=== PATIENT | male | born 1965 | race Caucasian/White ===

== ENCOUNTER 2016-08-13 11:34 | Emergency (ER) | payer OTHER ==
[2016-08-13 11:58] VITALS: TEMP 98.2
--- NOTE | 2016-08-13 12:20 | ED ---
General Adult HPI - General Chief complaint: Wound/Laceration Stated complaint: Hand laceration Time Seen by Provider: 08/13/16 12:00 Source: patient, RN notes reviewed Mode of arrival: ambulatory Limitations: no limitations - History of Present Illness Initial comments: This is a 50-year-old male who presents emergency Department complaining of a laceration on his left hand on the base of the third digit on the medial aspect. Patient states he went to mushroom picker a roof rebel out of the truck and it cut him. Patient states she has not had a tetanus recently. Patient has full range of motion of the finger and normal sensation. Patient has no other injury at this time. - Related Data Home Medications Medication Instructions Recorded Confirmed Atorvastatin [Lipitor] 40 mg PO HS 11/27/15 08/13/16 Cyclobenzaprine [Flexeril] 10 mg PO TID 11/27/15 08/13/16 Ergocalciferol [Vitamin D2 50,000 unit PO QMONTH 11/27/15 08/13/16 (DRISDOL)] HYDROcodone/APAP 10-325MG [[place] 1 tab PO QID PRN 11/27/15 08/13/16 10-325] Ibuprofen [Motrin] 800 mg PO TID PRN 11/27/15 08/13/16 Lisinopril [Zestril] 20 mg PO QAM 11/27/15 08/13/16 Previous Rx's Medication Instructions Recorded Cephalexin [Keflex] 500 mg PO Q6HR #28 cap 08/13/16 Allergies Allergy/AdvReac Type Severity Reaction Status Date / Time No Known Allergies Allergy Verified 08/13/16 12:05 Review of Systems ROS Statement: Those systems with pertinent positive or pertinent negative responses have been documented in the HPI. ROS Other: All systems not noted in ROS Statement are negative. Past Medical History Past Medical History: Hyperlipidemia, Hypertension, Osteoarthritis (OA), Pneumonia Additional Past Medical History / Comment(s): PSORIASES,SEASONAL SINUS PROBLEMS, HEMORRHOIDS, AGE 8 HAD SX" FOR HOLE IN HIS HEART" History of Any Multi-Drug Resistant Organisms: MRSA Date of last positivie culture/infection: 11/27/15 MDRO Source:: ELBOW RIGHT Additional Past Surgical History / Comment(s): HEART SX AGE 8 TO REPAIR A "HPLE IN HIS HEART", TEETH EXTRACTED, LT HAND RING FINGER NAIL REMOVED AND PINNING DONE-PIN SINCE REMOVED. Past Anesthesia/Blood Transfusion Reactions: No Reported Reaction Additional Past Anesthesia/Blood Transfusion Reaction / Comment(s): CLAUSTERPHOBIA Past Psychological History: No Psychological Hx Reported Additional Psychological History / Comment(s): PT STATED NO PREVIOUS HX OF DEPRESSION BUT [facility] STATED OCC MILD DREPRESSION D/T SOME "ISSUES". DENIES ANY SUICIDAL THOUGHTS OR WANTING TO HARM HIMSELF OR ANYONE ELSE.PT LIVES AT HOME WITH HIS , IS INDEPENDANT AND WORKS IN THE HOME [employer]. Smoking Status: Current every day smoker Past Alcohol Use History: None Reported Additional Past Alcohol Use History / Comment(s): STATED STARTED SMOKIN G AT AGE 25 SMOKES LESS THAN 1 PPD. SMOKNG CESSTION BOOKLET GIVEN TO PT. Past Drug Use History: Marijuana - Past Family History Father Family Medical History: Myocardial Infarction (HI) Mother Family Medical History: Diabetes Mellitus Additional Family Medical History / Comment(s): OBESITY, COLOSTOMY BUT NOT SURE WHY General Exam - General Exam Comments Initial Comments: GENERAL Patient is well-developed and well-nourished. Patient is in mild distress. EYES Patient's pupils are equal and round. Extraocular motion is intact SKIN Unremarkable NEURO The patient is alert and oriented 3 PYSCH Patient has normal interpersonal interactions. MUSCULOSKELETAL Patient has a 2 cm laceration on the medial aspect of his left third finger adjacent to the proximal phalanx Limitations: no limitations Course Vital Signs 08/13/16 11:54 Temperature 98.2 F Pulse Rate 104 H Respiratory 16 Rate Blood Pressure 146/74 O2 Sat by Pulse 95 Oximetry Procedures - Laceration Laceration #1 Consent Obtained: verbal consent Time Out Performed: Yes Indication: laceration Site: hand Description: linear Depth: simple, single layer Anesthetic Used: lidocaine 1% Anesthesia Technique: local infiltration Pre-repair: wound explored Type of Sutures: nylon Size of Sutures: 4-0 Number of Sutures: 4 Complications: pain Patient Tolerated Procedure: well Disposition Clinical Impression: Laceration Disposition: HOME SELF-CARE Condition: Good Instructions: Laceration (ED) Additional Instructions: Patient should have the sutures removed in 10 days. Prescriptions: Cephalexin [Keflex] 500 mg PO Q6HR #28 cap Referrals: Manish Smith MD [Primary Care Provider] - 1-2 days Time of Disposition: 12:40
[2016-08-13] MEDS ORDERED: DIPH,PERTUS(ACELL)TETVAC-LF 0.5 ML VIAL IM ONE (12:21)
[2016-08-13 13:18] VITALS: BP 136/85; PULSE 82; RESP 20
== END 2016-08-13 13:18 | disposition home or self-care (01) ==
LOC: EC 11:34
DX: S61.213A Laceration without foreign body of left middle finger without damage to nail, initial encounter (principal); I10 Essential (primary) hypertension; E78.5 Hyperlipidemia, unspecified; M19.90 Unspecified osteoarthritis, unspecified site; Z23 Encounter for immunization; Z87.891 Personal history of nicotine dependence; Z79.899 Other long term (current) drug therapy; W45.8XXA Other foreign body or object entering through skin, initial encounter; Y93.89 Activity, other specified
CPT/HCPCS: 12001; 90471; 90715; 99283

== ENCOUNTER → 2018-08-01 | Outpatient (CLI) | payer OTHER ==
--- NOTE | 2018-08-02 17:59 | MR ---
EXAMINATION TYPE: MR hip LT wo con DATE OF EXAM: 08/01/2018 COMPARISON: NONE HISTORY: 52-year-old male Left Hip Pain with Clicking and Limited ROM X1 Year TECHNIQUE: Multiplanar, multisequence images of the left hip were obtained without IV contrast. FINDINGS: There is diffuse cortical and trabecular thickening with mildly increased fluid signal throughout the left hemipelvis. Despite this diffuse mild increased signal, scattered areas of preserved fatty T1 m arrow remained. No abnormal edema extending into the adjacent soft tissues. Suggestion of some degenerative changes at the left SI joint. There is advanced, nearly end-stage deg enerative change at the left hip with axial joint space loss and subchondral marrow signal changes al rachael the central weightbearing aspect of the left femoral head as well. Mild, possibly moderate diffuse cartilage thinning in the right hip. The rectus femoris origins and left hamstrings origins are intact. Tendinosis and broad-based intrasubstance tear at the right hamstrings origin measuring 2.7 cm wide a nd 6 mm thick. Further coronal STIR image 17. The bilateral gluteal and iliopsoas insertions are intact. Normal course, caliber, and signal intensity of the sciatic nerves. No abnormal fluid collection in the pelvis or pelvic lymphadenopathy. IMPRESSION: 1. Diffuse abnormality of the left hemipelvis characterized by apparent cortical and trabecular thick ening and diffuse mild increased fluid signal. Despite the signal changes, some scattered preserved a reas of fatty marrow remain. Findings suspected to be on the basis of Paget's disease. Radiographic c orrelation recommended. 2. Advanced left hip osteoarthrosis. Mild osteoarthrosis of the right. Additional degenerative change s of the left SI joint. 3. Hamstrings origin tendinosis and a broad-based intrasubstance tear measuring 2.7 cm wide and 6 mm thick on the right.
== END | disposition home or self-care (01) ==
LOC: RADMRIMAIN 09:24
PROVIDERS: ATTEND Physician Assistant
DX: M16.0 Bilateral primary osteoarthritis of hip (principal); M47.818 Spondylosis without myelopathy or radiculopathy, sacral and sacrococcygeal region; S76.011A Strain of muscle, fascia and tendon of right hip, initial encounter; M75.41 Impingement syndrome of right shoulder; M75.01 Adhesive capsulitis of right shoulder

== ENCOUNTER → 2021-06-06 | Outpatient (CLI) | payer OTHER ==
--- NOTE | 2021-06-06 15:51 | NM ---
EXAMINATION TYPE: NM bone scan whole body DATE OF EXAM: 06/06/2021 COMPARISON: MRI 08/01/2018 HISTORY: Hypercalcemia Delayed whole-body scanning was performed following the injection of 26.5 mCi Tc 99m MDP. Images wer e acquired 3 hours post injection. FINDINGS: There is diffuse increased uptake within the left ischio predominantly adjacent to the sacroiliac maru nt the acetabulum extending into the pubic initial ramus to pubic symphysis. Consider Paget's disease within the differential. Plain film pelvis is recommended. IMPRESSION: 1. Findings may be suggestive for Paget's disease of the left hemipelvis. Plain film correlation is r ecommended.
== END | disposition home or self-care (01) ==
LOC: RADNMMAIN 09:53
PROVIDERS: ATTEND Family Medicine
DX: E83.52 Hypercalcemia (principal)
CPT/HCPCS: 78306; A9503